=== PATIENT | male | born 1955 | race Caucasian/White ===

== ENCOUNTER → 2020-03-29 | Outpatient (CLI) | payer OTHER ==
--- NOTE | 2020-03-29 11:01 | P.STRESS ---
- Stress Test Note Stress Test Results/Findings: Exam Performed: stress echo exercise Exam Date: 03/29/20 Reason for Exam: CHEST PAIN Height: 6 ft 1 in Weight: 96.162 kg Protocol: NOEMY Stage: 3 Duration of Exercise: 6:25 Resting Heart Rate: 79 Resting Blood Pressure: 138/85 Maximum Achieved Heart Rate: 154 Maximum Achieved Blood Pressure: 188/79 85% PMHR: 134 100% PMHR: 158 METS: 7.5 Technologist Comment: Stress Test Results/Findings: This is a 64-year-old gentleman with history of hypertension being evaluated for symptoms of chest pain. Patient also has history of hypercholesterolemia. Stress data: Baseline EKG showed sinus rhythm with normal AR interval, QRS duration. Blood pressure at rest is 138/85 with pulse rate of 79. Patient walked on the Noemy protocol for 6 minutes and 25 seconds achieving a maximum heart rate of 154. The blood pressure 188/79. EKGs taken during and after exercise did not show any significant changes from the baseline. Echo data: Baseline echo images show normal wall motion and thickening. Exercise echo images showed augmentation of wall motion and thickening in all the segments. Patient did not experience any chest pain. Final impression: #1. Negative stress test #2. Negative stress echo. #3. Patient did not experience any chest pain #4. No arrhythmias detected
--- NOTE | 2020-03-29 14:44 | ECHOS ---
Stress Test Results/Findings: Exam Performed: stress echo exercise Exam Date: 03/29/20 Reason for Exam: CHEST PAIN Height: 6 ft 1 in Weight: 96.162 kg Protocol: NOEMY Stage: 3 Duration of Exercise: 6:25 Resting Heart Rate: 79 Resting Blood Pressure: 138/85 Maximum Achieved Heart Rate: 154 Maximum Achieved Blood Pressure: 188/79 85% PMHR: 134 100% PMHR: 158 METS: 7.5 Technologist Comment: Stress Test Results/Findings: This is a 64-year-old gentleman with history of hypertension being evaluated for symptoms of chest pain. Patient also has history of hypercholesterolemia. Stress data: Baseline EKG showed sinus rhythm with normal IL interval, QRS duration. Blood pressure at rest is 138/85 with pulse rate of 79. Patient walked on the Noemy protocol for 6 minutes and 25 seconds achieving a maximum heart rate of 154. The blood pressure 188/79. EKGs taken during and after exercise did not show any significant changes from the baseline. Echo data: Baseline echo images show normal wall motion and thickening. Exercise echo images showed augmentation of wall motion and thickening in all the segments. Patient did not experience any chest pain. Final impression: #1. Negative stress test #2. Negative stress echo. #3. Patient did not experience any chest pain #4. No arrhythmias detected MTDD
== END | disposition home or self-care (01) ==
LOC: RADNMMAIN 08:46
PROVIDERS: ATTEND Family Medicine
DX: I10 Essential (primary) hypertension (principal); E78.2 Mixed hyperlipidemia; R07.9 Chest pain, unspecified
CPT/HCPCS: 93351

== ENCOUNTER → 2021-12-26 | Outpatient (CLI) | payer BC ==
--- NOTE | 2021-12-26 22:09 | CT ---
EXAMINATION TYPE: CT abdomen pelvis wo/w con DATE OF EXAM: 12/26/2021 COMPARISON: No previous CT scan is available for comparison. HISTORY: left flank pian CT DLP: 2242.7 mGycm Automated exposure control for dose reduction was used. TECHNIQUE: Helical acquisition of images was performed from the lung bases through the pelvis. CONTRAST: Performed with Oral Contrast and with IV Contrast, patient injected with 100 mL of Isovue 300. FINDINGS: LUNG BASES: Bilateral basal subsegmental pulmonary atelectasis and peripheral reticulations. LIVER/GB: Left anterior hepatic lobe cyst measuring 17 mm. Other scattered smaller tiny hepatic hypod ensities, likely representing tiny hepatic cysts. The gallbladder is not distended probably due to in complete fasting. PANCREAS: No significant abnormality is seen. SPLEEN: No significant abnormality is seen. ADRENALS: No significant abnormality is seen. KIDNEYS: Multiple variable sized left parapelvic and cortical renal cysts without suspicious feature. Bilateral perinephric fat stranding, nonspecific. Unremarkable kidneys otherwise. No hydroureter or hydronephrosis. FREE AIR: No free air is visualized. RETROPERITONEAL ADENOPATHY: None visualized REPRODUCTIVE ORGANS: Slightly enlarged prostate. Unremarkable seminal vesicles. URINARY BLADDER: No significant abnormality is seen. PELVIC ADENOPATHY: No pathologically enlarged lymph nodes. OSSEOUS STRUCTURES: Anterior wedging of L3 vertebral body, likely chronic. Degenerative changes of t he lumbar spine. No gross aggressive bone lesion. BOWEL: Unremarkable stomach. Small duodenal diverticulum. Unremarkable small bowel. Scattered uncomp licated diverticulosis. No gross colonic mass however a small lesion cannot be excluded. OTHER: Unremarkable abdominal aorta and IVC. No sizable ascites. Small fat-containing right inguinal hernia. IMPRESSION: Left parapelvic and cortical simple renal cysts without suspicious feature. Bilateral perinephric fat stranding, nonspecific. No other significant renal abnormality identified. Please note that subtle u rinary tract infection cannot be excluded by this CT scan. Other incidental findings as described abo ve.
== END | disposition home or self-care (01) ==
LOC: RADCTMAIN 16:34
PROVIDERS: ATTEND Family Medicine
DX: N28.1 Cyst of kidney, acquired (principal)
CPT/HCPCS: 74178; Q9967

== ENCOUNTER 2023-07-12 10:16 | Day surgery (SDC) | payer MEDICARE, BC ==
[~2023-07-12 10:16] MED LIST: LACTATED RINGERS 1,000 ML IV SCH
[2023-07-12 12:13] VITALS: RESP 16; TEMP 97.7
[2023-07-12] MEDS ORDERED: PROPOFOL 10 MG/ML 20 ML VIAL IV ONE (12:34)
--- NOTE | 2023-07-12 12:48 | P.PCN ---
Date of Procedure: 07/12/23 Procedure(s) Performed: BRIEF HISTORY: Patient is a 68-year-old pleasant white male scheduled for an elective colonoscopy as a part of evaluation of prior history of colon polyps. His last coloscopy was 5 years ago. PROCEDURE PERFORMED: Colonoscopy. PREOPERATIVE DIAGNOSIS: History of colon polyps. IV sedation per Anesthesia. PROCEDURE: After informed consent was obtained, the patient, was brought into the endoscopy unit. IV sedation was administered by Anesthesia under continuous monitoring. Digital rectal examination was normal. Initially the Olympus CF-160 flexible video colonoscope was then inserted in the rectum, gradually advanced into the cecum without any difficulty. Careful examination was performed as the scope was gradually being withdrawn. Ileocecal valve and the appendiceal orifice were visualized and appeared normal. Prep was excellent. Mucosa of the cecum, ascending colon, transverse colon, descending colon, sigmoid colon, and rectum appeared normal. Scattered sigmoid diverticulosis. Retroflexion was performed in the rectum and small internal hemorrhoids were seen. The patient tolerated the procedure well. IMPRESSION: Normal-appearing colon from rectum to cecum with no evidence of colorectal neoplasia. Scattered sigmoid diverticulosis Small internal hemorrhoids RECOMMENDATIONS: Findings of this examination were discussed with the patient as well as his family. She was advised to have a repeat colonoscopy in 10 years..
[2023-07-12 13:27] VITALS: BP 141/85; PULSE 88
== END 2023-07-12 13:39 | disposition home or self-care (01) ==
LOC: ORWHC2ENDO 10:16
PROVIDERS: ATTEND Internal Medicine Gastroenterology
DX: Z12.11 Encounter for screening for malignant neoplasm of colon (principal); K57.30 Diverticulosis of large intestine without perforation or abscess without bleeding; K64.8 Other hemorrhoids; Z86.010 Personal history of colon polyps
CPT/HCPCS: G0105; J2704; 45378

== ENCOUNTER → 2023-08-16 | Outpatient (CLI) | payer MEDICARE, BC ==
[2023-08-16 15:35] LABS: HCT 41.1 % (39.6-50.0); HGB 13.4 g/dL (13.0-17.0); MCH 29.5 pg (27.0-32.0); MCHC 32.6 g/dL (32.0-37.0); MCV 90.3 FL (80.0-97.0); Mean Platelet Volume 9.8 FL (9.5-12.2); NRBC Per 100 WBC 0 X 10*3/uL (0.00-0.01); Platelet Count 315 X 10*3/uL (140-440); RBC 4.55 X 10*6/uL (4.40-5.60); RDW 12.5 % (11.5-14.5); WBC 9.16 X 10*3/uL (4.50-10.00)
[2023-08-16 16:24] LABS: Blood Urea Nitrogen 15.1 mg/dL (9.0-27.0); Chol/HDL Ratio 2.91 Ratio; Glucose 98 mg/dL (70-110); LDL Cholesterol,Calculated 92.2 mg/dL (0.0-131.0); VLDL Calculation 16.68 mg/dL (5.00-40.00)
[2023-08-16 16:25] LABS: ALT 20 U/L (10-49); AST 22 U/L (14-35); Albumin 4.3 g/dL (3.8-4.9); Albumin/Globulin Ratio 1.79 Ratio (1.60-3.17); Alkaline Phosphatase 82 U/L (41-126); Calcium 9.2 mg/dL (8.7-10.3); Carbon Dioxide 26.3 mmol/L (21.6-31.8); Chloride 102 mmol/L (96-109); Globulin 2.4 g/dL (1.6-3.3); Potassium 4.8 mmol/L (3.5-5.5); Prostate Specific Antigen 1.01 ng/mL (0.000-4.500); Sodium 138 mmol/L (135-145); Total Bilirubin 0.4 mg/dL (0.3-1.2); Total Protein 6.7 g/dL (6.2-8.2)
== END | disposition home or self-care (01) ==
LOC: LABWHC1 07:59
PROVIDERS: ATTEND Family Medicine
DX: I10 Essential (primary) hypertension (principal); N40.0 Benign prostatic hyperplasia without lower urinary tract symptoms; R73.09 Other abnormal glucose
CPT/HCPCS: 36415; 80053; 80061; 83036; 84153; 84443; 85027